=== PATIENT | male | born 1945 | race Caucasian/White ===

== ENCOUNTER 2023-01-11 11:35 | Inpatient (IN) | payer MEDICARE ==
[2023-01-11] MEDS ORDERED: PANTOPRAZOLE 40 MG/10 ML VIAL IVP STA (11:53)
--- NOTE | 2023-01-11 11:57 | ED ---
General Adult HPI - General Chief complaint: GI Bleed Stated complaint: GI Bleed Time Seen by Provider: 01/11/23 11:44 Source: patient, family, EMS, RN notes reviewed Mode of arrival: EMS Limitations: no limitations - History of Present Illness Initial comments: Patient is a pleasant 77-year-old male presenting to the emergency department with concerns for rectal bleeding. Onset of symptoms was this morning. Patient went to the bathroom and felt fatigued and lightheaded. Patient did notice some blood with the bowel movement. Patient has been having some lower abdominal cramping. Patient then had an episode of near-syncope and did have a bowel movement in his pants with associated blood. Patient states symptoms at this time are mild. Patient denies taking blood thinners. No history of similar symptoms previously. No history of atrial fibrillation - Related Data Allergies Allergy/AdvReac Type Severity Reaction Status Date / Time No Known Allergies Allergy Verified 01/11/23 11:48 Review of Systems ROS Statement: Those systems with pertinent positive or pertinent negative responses have been documented in the HPI. ROS Other: All systems not noted in ROS Statement are negative. Constitutional: Denies: fever Eyes: Denies: eye pain ENT: Denies: ear pain Respiratory: Denies: cough Cardiovascular: Denies: chest pain Endocrine: Reports: fatigue Gastrointestinal: Reports: as per HPI, hematochezia Genitourinary: Denies: dysuria Musculoskeletal: Denies: back pain Skin: Denies: rash Neurological: Denies: weakness Past Medical History Past Medical History: CVA/TIA, Dementia Past Surgical History: Hernia Repair, Orthopedic Surgery, Prostate Surgery Additional Past Surgical History / Comment(s): vascectomy, shoulder surgery, Smoking Status: Former smoker Past Alcohol Use History: None Reported, Rare Past Drug Use History: None Reported General Exam Limitations: no limitations General appearance: alert, in no apparent distress Head exam: Present: normocephalic Eye exam: Present: normal appearance Neck exam: Present: normal inspection Respiratory exam: Present: normal lung sounds bilaterally Cardiovascular Exam: Present: irregular rhythm GI/Abdominal exam: Present: soft, normal bowel sounds. Absent: distended, tenderness, guarding, rebound, rigid Rectal exam: Present: bloody stool Extremities exam: Present: normal inspection Neurological exam: Present: alert Psychiatric exam: Present: normal affect, normal mood Skin exam: Present: normal color Course Vital Signs 01/11/23 01/11/23 01/11/23 11:43 11:45 12:00 Temperature 97.6 F Pulse Rate 86 85 Respiratory 18 7 L Rate Blood Pressure 117/73 117/73 117/73 O2 Sat by Pulse 97 97 97 Oximetry 01/11/23 01/11/23 01/11/23 12:15 12:30 12:45 Temperature Pulse Rate 93 80 76 Respiratory 12 18 18 Rate Blood Pressure 92/58 107/77 114/69 O2 Sat by Pulse 98 98 97 Oximetry 01/11/23 01/11/23 01/11/23 12:59 13:00 13:45 Temperature Pulse Rate 82 91 89 Respiratory 18 16 16 Rate Blood Pressure 107/75 107/75 119/83 O2 Sat by Pulse 98 99 98 Oximetry 01/11/23 13:57 Temperature Pulse Rate 64 Respiratory 18 Rate Blood Pressure 99/66 O2 Sat by Pulse 97 Oximetry - Reevaluation(s) Reevaluation #1: 01/11/23 12:02 Repeat EKG does show atrial fibrillation with rate of 84. Left axis. Q waves V1. PVC is present. No acute ST change. EKG Findings - EKG Results: EKG: interpreted by ERMD (Left axis. Poor R-wave progression. PVCs present.), normal ST/T EKG shows: atrial fibrillation Medical Decision Making - Medical Decision Making Was pt. sent in by a medical professional or institution (Dr. PA, MANAGED CARE LIAISON, urgent care, hospital, or longterm...) When possible be specific @ -No Did you speak to anyone other than the patient for history (EMS, parent, family, police, friend...)? What history was obtained from this source @ - is present and helps right history including near syncopal episode Did you review nursing and triage notes (agree or disagree)? Why? @ -I reviewed and agree with nursing and triage notes Were old charts reviewed (outside hosp., previous admission, EMS record, old EKG, old radiological studies, urgent care reports/EKG's, longterm records)? Report findings @ -No old charts were reviewed Differential Diagnosis (chest pain, altered mental status, abdominal pain women, abdominal pain men, vaginal bleeding, weakness, fever, dyspnea, syncope, headache, dizziness, GI bleed, back pain, seizure, CVA, palpatations, mental health, musculoskeletal)? @ -Differential GI Bleed: Esophageal varices, aortoenteric fistula, Yolanda-Shukla, gastritis, peptic ulcer disease, diverticulosis, inflammatory bowel disease, hemorrhoids, fissure, colitis, malignancy, Meckels diverticulum, this is not meant to be an all- inclusive list. EKG interpreted by me (3pts min.). @ -As above X-rays interpreted by me (1pt min.). @ -None done CT interpreted by me (1pt min.). @ -Report reviewed U/S interpreted by me (1pt. min.). @ -None done What testing was considered but not performed or refused? (CT, X-rays, U/S, labs)? Why? @ -None What meds were considered but not given or refused? Why? @ -None Did you discuss the management of the patient with other professionals (professionals i.e. DrSophia, PA, MANAGED CARE LIAISON, lab, RT, psych nurse, social sciences research scientist, first aid director, teacher, mail officer, machine adjuster leader case trim)? Give summary @ -Case was discussed with Dr. Greer who will consult and recommends medical admission. Case also discussed with Dr. Montiel, who will admit covering hospital call Was smoking cessation discussed for >3mins.? @ -No Was critical care preformed (if so, how long)? @ -No Were there social determinants of health that impacted care today? How? (Homelessness, low income, unemployed, alcoholism, drug addiction, transportation, low edu. Level, literacy, decrease access to med. care, intermediate, rehab)? @ -No Was there de-escalation of care discussed even if they declined (Discuss DNR or withdrawal of care, Hospice)? DNR status @ -No What co-morbidities impacted this encounter? (DM, HTN, Smoking, COPD, CAD, Cancer, CVA, ARF, Chemo, Hep., AIDS, mental health diagnosis, sleep apnea, morbid obesity)? @ -None Was patient admitted / discharged? Hospital course, mention meds given and route, prescriptions, significant lab abnormalities, going to OR and other pertinent info. @ -Patient reevaluated. Blood pressure stable. Patient and family updated. Patient will be admitted with consult with surgery. Patient will also have consult placed for cardiology for probable new-onset atrial fibrillation. Blood thinners will be held at this time secondary to concern for GI bleed. Patient does not need Cardizem drip secondary to rate being controlled. Undiagnosed new problem with uncertain prognosis? @ -No Drug Therapy requiring intensive monitoring for toxicity (Heparin, Nitro, Insulin, Cardizem)? @ -No Were any procedures done? @ -No Diagnosis/symptom? @ -Lower GI hemorrhage, A. fib Acute, or Chronic, or Acute on Chronic? @ -Acute Uncomplicated (without systemic symptoms) or Complicated (systemic symptoms)? @ -default Side effects of treatment? @ -No Exacerbation, Progression, or Severe Exacerbation? @ -No Poses a threat to life or bodily function? How? (Chest pain, [place], AL, pneumonia, PE, COPD, DKA, ARF, appy, cholecystitis, CVA, Diverticulitis, Homicidal, Suicidal, threat to staff... and all critical care pts) @ -No - Lab Data Result diagrams: 01/11/23 11:59 01/11/23 11:59 Lab Results 01/11/23 01/11/23 01/11/23 Range/Units 11:59 11:59 11:59 WBC 11.8 H (3.8-10.6) k/uL RBC 3.81 L (4.30-5.90) m/uL Hgb 10.5 L (13.0-17.5) gm/dL Hct 33.4 L (39.0-53.0) % MCV 87.5 (80.0-100.0) fL MCH 27.4 (25.0-35.0) pg MCHC 31.3 (31.0-37.0) g/dL RDW 14.8 (11.5-15.5) % Plt Count 278 (150-450) k/uL MPV 7.9 Neutrophils % 83 % Lymphocytes % 7 % Monocytes % 7 % Eosinophils % 1 % Basophils % 0 % Neutrophils # 9.8 H (1.3-7.7) k/uL Lymphocytes # 0.8 L (1.0-4.8) k/uL Monocytes # 0.8 (0-1.0) k/uL Eosinophils # 0.1 (0-0.7) k/uL Basophils # 0.0 (0-0.2) k/uL Hypochromasia Marked PT 11.2 (9.0-12.0) sec INR 1.1 (<1.2) APTT 20.7 L (22.0-30.0) sec Sodium (137-145) mmol/L Potassium (3.5-5.1) mmol/L Chloride (98-107) mmol/L Carbon Dioxide (22-30) mmol/L Anion Gap mmol/L BUN (9-20) mg/dL Creatinine (0.66-1.25) mg/dL Est GFR (CKD-EPI)AfAm (>60 ml/min/1.73 sqM) Est GFR (CKD-EPI)NonAf (>60 ml/min/1.73 sqM) Glucose (74-99) mg/dL Calcium (8.4-10.2) mg/dL Magnesium (1.6-2.3) mg/dL Total Bilirubin (0.2-1.3) mg/dL AST (17-59) U/L ALT (4-49) U/L Alkaline Phosphatase (38-126) U/L Troponin I (0.000-0.034) ng/mL Total Protein (6.3-8.2) g/dL Albumin (3.5-5.0) g/dL Stool Occult Blood Positive (Negative) Blood Type Blood Type Confirm Blood Type Recheck Bld Type Recheck Status Antibody Screen Spec Expiration Date 01/11/23 01/11/23 01/11/23 Range/Units 11:59 11:59 11:59 WBC (3.8-10.6) k/uL RBC (4.30-5.90) m/uL Hgb (13.0-17.5) gm/dL Hct (39.0-53.0) % MCV (80.0-100.0) fL MCH (25.0-35.0) pg MCHC (31.0-37.0) g/dL RDW (11.5-15.5) % Plt Count (150-450) k/uL MPV Neutrophils % % Lymphocytes % % Monocytes % % Eosinophils % % Basophils % % Neutrophils # (1.3-7.7) k/uL Lymphocytes # (1.0-4.8) k/uL Monocytes # (0-1.0) k/uL Eosinophils # (0-0.7) k/uL Basophils # (0-0.2) k/uL Hypochromasia PT (9.0-12.0) sec INR (<1.2) APTT (22.0-30.0) sec Sodium 138 (137-145) mmol/L Potassium 4.5 (3.5-5.1) mmol/L Chloride 107 (98-107) mmol/L Carbon Dioxide 25 (22-30) mmol/L Anion Gap 6 mmol/L BUN 22 H (9-20) mg/dL Creatinine 0.79 (0.66-1.25) mg/dL Est GFR (CKD-EPI)AfAm >90 (>60 ml/min/1.73 sqM) Est GFR (CKD-EPI)NonAf 88 (>60 ml/min/1.73 sqM) Glucose 123 H (74-99) mg/dL Calcium 8.0 L (8.4-10.2) mg/dL Magnesium 1.5 L (1.6-2.3) mg/dL Total Bilirubin 0.4 (0.2-1.3) mg/dL AST 19 (17-59) U/L ALT 22 (4-49) U/L Alkaline Phosphatase 52 (38-126) U/L Troponin I <0.012 (0.000-0.034) ng/mL Total Protein 5.3 L (6.3-8.2) g/dL Albumin 2.9 L (3.5-5.0) g/dL Stool Occult Blood (Negative) Blood Type A Positive Blood Type Confirm Blood Type Recheck No Previous Record Bld Type Recheck Status CABO Indicated Antibody Screen NEGATIVE Spec Expiration Date 01/14/2023 - 235801/11/23 Range/Units 12:05 WBC (3.8-10.6) k/uL RBC (4.30-5.90) m/uL Hgb (13.0-17.5) gm/dL Hct (39.0-53.0) % MCV (80.0-100.0) fL MCH (25.0-35.0) pg MCHC (31.0-37.0) g/dL RDW (11.5-15.5) % Plt Count (150-450) k/uL MPV Neutrophils % % Lymphocytes % % Monocytes % % Eosinophils % % Basophils % % Neutrophils # (1.3-7.7) k/uL Lymphocytes # (1.0-4.8) k/uL Monocytes # (0-1.0) k/uL Eosinophils # (0-0.7) k/uL Basophils # (0-0.2) k/uL Hypochromasia PT (9.0-12.0) sec INR (<1.2) APTT (22.0-30.0) sec Sodium (137-145) mmol/L Potassium (3.5-5.1) mmol/L Chloride (98-107) mmol/L Carbon Dioxide (22-30) mmol/L Anion Gap mmol/L BUN (9-20) mg/dL Creatinine (0.66-1.25) mg/dL Est GFR (CKD-EPI)AfAm (>60 ml/min/1.73 sqM) Est GFR (CKD-EPI)NonAf (>60 ml/min/1.73 sqM) Glucose (74-99) mg/dL Calcium (8.4-10.2) mg/dL Magnesium (1.6-2.3) mg/dL Total Bilirubin (0.2-1.3) mg/dL AST (17-59) U/L ALT (4-49) U/L Alkaline Phosphatase (38-126) U/L Troponin I (0.000-0.034) ng/mL Total Protein (6.3-8.2) g/dL Albumin (3.5-5.0) g/dL Stool Occult Blood (Negative) Blood Type Blood Type Confirm A Positive Blood Type Recheck Bld Type Recheck Status Antibody Screen Spec Expiration Date Disposition Clinical Impression: Lower gastrointestinal hemorrhage Disposition: ADMITTED IP TO THIS HOSP Is patient prescribed a controlled substance at d/c from ED?: No Referrals: None,Stated [Primary Care Provider] - 1-2 days Time of Disposition: 14:55
[2023-01-11] MEDS: SODIUM CHLORIDE 0.9% 1,000 ML IV STA ×2 (12:11→12:58)
[2023-01-11 12:16] LABS: Basophils % (A) 0 %; Eosinophils # (A) 0.1 k/uL (0-0.7); Eosinophils % (A) 1 %; HCT 33.4 % (39.0-53.0); HGB 10.5 gm/dL (13.0-17.5); Hypochromasia Marked; Lymphocytes # (A) 0.8 k/uL (1.0-4.8); Lymphocytes % (A) 7 %; MCH 27.4 pg (25.0-35.0); MCHC 31.3 g/dL (31.0-37.0); MCV 87.5 fL (80.0-100.0); Mean Platelet Volume 7.9; Monocytes # (A) 0.8 k/uL (0-1.0); Monocytes % (A) 7 %; Neutrophils # (A) 9.8 k/uL (1.3-7.7); Neutrophils % (A) 83 %; Platelet Count 278 k/uL (150-450); RBC 3.81 m/uL (4.30-5.90); RDW 14.8 % (11.5-15.5); WBC 11.8 k/uL (3.8-10.6)
[2023-01-11 12:29] LABS: ALT 22 U/L (4-49); AST 19 U/L (17-59); African American GFR (CKD) >90 (>60 ml/min/1.73 sqM); Albumin 2.9 g/dL (3.5-5.0); Alkaline Phosphatase 52 U/L (38-126); Anion Gap 6 mmol/L; Blood Urea Nitrogen 22 mg/dL (9-20); Carbon Dioxide 25 mmol/L (22-30); Chloride 107 mmol/L (98-107); Glucose 123 mg/dL (74-99); Magnesium 1.5 mg/dL (1.6-2.3); Non-African American GFR(CKD) 88 (>60 ml/min/1.73 sqM); Potassium 4.5 mmol/L (3.5-5.1); Sodium 138 mmol/L (137-145); Total Bilirubin 0.4 mg/dL (0.2-1.3); Total Protein 5.3 g/dL (6.3-8.2)
[2023-01-11 12:31] LABS: INR 1.1 (<1.2); Prothrombin Time 11.2 sec (9.0-12.0)
[2023-01-11 12:33] LABS: Partial Thromboplastin Time 20.7 sec (22.0-30.0)
[2023-01-11] MEDS ORDERED: SODIUM CHLORIDE 0.9% 1,000 ML IV STA (12:54)
--- NOTE | 2023-01-11 14:32 | CT ---
EXAMINATION TYPE: CT angio abdomen pelvis DATE OF EXAM: 01/11/2023 COMPARISON: None HISTORY: GI bleed CT DLP: 2018.8 mGycm CONTRAST: CTA thoracic and abdominal aorta with 3-D reconstruction is performed without Oral Contrast and witho ut and with IV Contrast, patient injected with 100 ml mL of Isovue 370. Contrast CTA of the abdominal aorta was performed from the lung bases through the base of the pelvis. 3-D reconstruction imaging obtained at a separate workstation. CONTRAST CT ABDOMEN AND PELVIS ABDOMINAL AORTA: No evidence for abdominal aortic aneurysm. No dissection. Iliac vessels are symmet beth and patent. Celiac axis, SMA and DIONY are patent. Common iliac arteries are mildly ectatic. Renal arteries as visualized appear to be patent as well. LIVER/GB- No significant abnormality is seen. PANCREAS- No significant abnormality is seen. SPLEEN- No significant abnormality is seen. ADRENALS- No significant abnormality is seen. KIDNEYS/BLADDER- No significant abnormality is seen. BOWEL-there is evidence of sigmoid diverticulosis without diverticulitis. Mild fecal stasis. Moderate fixed hiatal hernia. No evidence for GI inflammatory process or wall thickening at this time. GENITAL ORGANS: No gross abnormality seen. LYMPH NODES- No greater than 1cm abdominal or pelvic lymph nodes areappreciated. OSSEOUS STRUCTURES- No significant abnormality is seen. OTHER- No significant abnormality is seen. IMPRESSION- No evidence for abdominal aortic aneurysm or dissection. Branch vessels appear to be patent. Sigmoid diverticulosis without diverticulitis.
[2023-01-11] MEDS ORDERED: NALOXONE 0.4 MG/ML 1 ML VIAL IV PRN (14:56)
[2023-01-11] MEDS ORDERED: PANTOPRAZOLE 40 MG/10 ML VIAL IV SCH (15:00)
--- NOTE | 2023-01-11 15:16 | P.GSCN ---
History of Present Illness Consult date: 01/11/23 History of present illness: CHIEF COMPLAINT: Bright red blood per rectum HISTORY OF PRESENT ILLNESS: This is a 77-year-old male who presents to the ER due to a GI bleed. He had bright red blood per rectum 3 episodes. He has had clots as well as abdominal cramping. No history of prior GI bleed. Last colonoscopy was 5 years ago which was negative per patient. Patient does have a known history of diverticulitis 1 episode. He is not on any blood thinners. Denies any NSAID use. Family history does include a mother with stomach cancer and father with colon cancer. Hemoglobin 10.5 on admission. Stool for occult blood positive. Patient does report having a near syncopal episode prior to one of the bloody bowel movements. Therefore did call EMS. Patient had a CTA of the abdomen and pelvis showing no evidence of abdominal aortic aneurysm or dissection. Branch vessels appeared patent. Sigmoid diverticulosis without diverticulitis. Patient Denies any nausea or vomiting. He has been hypotensive. He is receiving IV fluids. PAST MEDICAL HISTORY: TIA and dementia PAST SURGICAL HISTORY: See below MEDICATIONS: See below ALLERGIES: See below SOCIAL HISTORY: No illicit drug use. REVIEW OF SYSTEMS: CONSTITUTIONAL: Denies fever or chills. HEENT: Denies blurred vision, vision changes, or eye pain. Denies hemoptysis CARDIOVASCULAR: Denies chest pain or pressure. RESPIRATORY: No shortness of breath. GASTROINTESTINAL: See HPI for pertinent findings HEMATOLOGIC: Denies bleeding disorders. GENITOURINARY: Denies any blood in urine or increased urinary frequency. SKIN: Denies pruitis. Denies rash. PHYSICAL EXAM: VITAL SIGNS: Reviewed GENERAL: Well-developed in no acute distress. HEENT: No sclera icterus. Extraocular movements grossly intact. Moist buccal mucosa. Head is atraumatic, normocephalic. No nasal drainage. ABDOMEN: Soft. Nondistended. Nontender NEUROLOGIC: Alert and oriented. Cranial nerves II through XII grossly intact. LABORATORY DATA: WBC 11.8 Hgb 10.5 platelets 278 INR 1.1 Sodium 13 potassium 4.5 creatinine 0.79 Magnesium 1.5 Stool for occult blood positive IMAGING: Computed tomography scan findings as stated above ASSESSMENT: 1. Acute lower GI bleed with bright red blood per rectum 2. History of diverticulosis 3. Atrial fibrillation cardiology on consult PLAN: -We'll plan for colonoscopy on , 01/13/[address] kapadia -Start GoLYTELY bowel prep tomorrow -Continue clear liquid diet -Continue to monitor hemoglobin -Continue monitor for any signs or symptoms of bleeding -Continue IV fluids -Follow up on Tagged RBC scan -Continue PPI Thank you for this consultation Physician [employer] Supervisor note has been reviewed by physician. Signing provider agrees with the documented findings, assessment, and plan of care. Past Medical History Past Medical History: CVA/TIA, Dementia Past Surgical History: Hernia Repair, Orthopedic Surgery, Prostate Surgery Additional Past Surgical History / Comment(s): vascectomy, shoulder surgery, Smoking Status: Former smoker Past Alcohol Use History: None Reported, Rare Past Drug Use History: None Reported Medications and Allergies Allergies Allergy/AdvReac Type Severity Reaction Status Date / Time No Known Allergies Allergy Verified 01/11/23 11:48 Surgical - Exam Vital Signs Temp Pulse Resp BP Pulse Ox 97.6 F 86 18 117/73 98 01/11/23 11:43 01/11/23 11:43 01/11/23 11:43 01/11/23 11:43 01/11/23 11:43 Results - Labs 01/11/23 11:59 01/11/23 11:59 Abnormal Lab Results - Last 24 Hours (Table) 01/11/23 01/11/23 01/11/23 Range/Units 11:59 11:59 11:59 WBC 11.8 H (3.8-10.6) k/uL RBC 3.81 L (4.30-5.90) m/uL Hgb 10.5 L (13.0-17.5) gm/dL Hct 33.4 L (39.0-53.0) % Neutrophils # 9.8 H (1.3-7.7) k/uL Lymphocytes # 0.8 L (1.0-4.8) k/uL APTT 20.7 L (22.0-30.0) sec BUN 22 H (9-20) mg/dL Glucose 123 H (74-99) mg/dL Calcium 8.0 L (8.4-10.2) mg/dL Magnesium 1.5 L (1.6-2.3) mg/dL Total Protein 5.3 L (6.3-8.2) g/dL Albumin 2.9 L (3.5-5.0) g/dL Diabetes panel 01/11/23 Range/Units 11:59 Sodium 138 (137-145) mmol/L Potassium 4.5 (3.5-5.1) mmol/L Chloride 107 (98-107) mmol/L Carbon Dioxide 25 (22-30) mmol/L BUN 22 H (9-20) mg/dL Creatinine 0.79 (0.66-1.25) mg/dL Glucose 123 H (74-99) mg/dL Calcium 8.0 L (8.4-10.2) mg/dL AST 19 (17-59) U/L ALT 22 (4-49) U/L Alkaline Phosphatase 52 (38-126) U/L Total Protein 5.3 L (6.3-8.2) g/dL Albumin 2.9 L (3.5-5.0) g/dL Calcium panel 01/11/23 Range/Units 11:59 Calcium 8.0 L (8.4-10.2) mg/dL Albumin 2.9 L (3.5-5.0) g/dL Pituitary panel 01/11/23 Range/Units 11:59 Sodium 138 (137-145) mmol/L Potassium 4.5 (3.5-5.1) mmol/L Chloride 107 (98-107) mmol/L Carbon Dioxide 25 (22-30) mmol/L BUN 22 H (9-20) mg/dL Creatinine 0.79 (0.66-1.25) mg/dL Glucose 123 H (74-99) mg/dL Calcium 8.0 L (8.4-10.2) mg/dL Adrenal panel 01/11/23 Range/Units 11:59 Sodium 138 (137-145) mmol/L Potassium 4.5 (3.5-5.1) mmol/L Chloride 107 (98-107) mmol/L Carbon Dioxide 25 (22-30) mmol/L BUN 22 H (9-20) mg/dL Creatinine 0.79 (0.66-1.25) mg/dL Glucose 123 H (74-99) mg/dL Calcium 8.0 L (8.4-10.2) mg/dL Total Bilirubin 0.4 (0.2-1.3) mg/dL AST 19 (17-59) U/L ALT 22 (4-49) U/L Alkaline Phosphatase 52 (38-126) U/L Total Protein 5.3 L (6.3-8.2) g/dL Albumin 2.9 L (3.5-5.0) g/dL
--- NOTE | 2023-01-11 15:41 | P.HPIM ---
History of Present Illness H&P Date: 01/11/23 History of Presenting Illness: Patient is a very pleasant 77-year-old male with a past medical history of hypertension, hyperlipidemia, asthma, and early onset Alzheimer's dementia. Patient and his are from [place] and vacationing in [place] at this time. He presented to the emergency department today secondary to recurrent episodes of dizziness/lightheadedness. Patient reports awakening this morning feeling fatigued and lightheadedness and reports she called EMS and this is when they he was having bright red blood per rectum. Patient reports since initially noting that she has had multiple episodes of bright red blood per rectum and believes he may have had some with initial bowel movement this morning. Since arrival to the emergency department patient reports an additional 4 episodes of large amounts of bright red blood per rectum with continued dizziness/lightheadedness and mild lower abdominal cramping. Patient denies having any headache, changes in vision or hearing, tinnitus, chest pain or palpitations, shortness of breath, or experiencing any numbness/tingling/weakness in his extremities. He and at bedside denies any previous episodes of rectal bleeding and deny taking any blood thinners or NSAIDs. Patient's at bedside reports last colonoscopy being approximately 5 years ago or so and was reported to be negative for any abnormalities. Upon arrival to the emergency department patient underwent full evaluation. Vital signs reviewed and stable with blood pressure 117/73, heart rate 86, respiratory rate 18, temp 97.6F, and SpO2 of 98% on room air. Labs completed and reviewed. CBC showing mild leukocytosis with WBC count of 11.8 and normocytic anemia with hemoglobin of 10.5 with no previous labs available for comparison. EMP revealing elevated BUN 22, glucose of 123, and hypomagnesemia with magnesium of 1.5. Liver profile unremarkable and troponin negative at less than 0.012. Occult stool positive for blood. EKG completed revealing sinus mechanism with frequent PACs and PVCs with no significant T-wave or ST abnormalities upon personal review and interpretation. CTA abdomen and pelvis was completed in radiology report reviewed stating negative for aortic aneurysm or dissection r evealing patent branch vessels, sigmoid diverticulosis without evidence of acute diverticulitis. GI service not available to facility at this time, and ER physician discussed case with general surgeon who has accepted patient for evaluation of GI bleeding. Case discussed with ED physician and patient being admitted under our services to general medical unit with telemetry. Review of systems: Pertinent positives and negatives as discussed in HPI, a complete review of systems was performed and all other systems are negative. Physical exam: Vital signs reviewed and stable. General: Nontoxic, no distress and appears stated age. Derm: Skin warm and dry, normal coloration for ethnicity. Head: Atraumatic, normocephalic and symmetric. Eyes: EOMs intact, no lid lag, and anicteric sclera Mouth: no lip lesions, mucus membranes moist Cardiovascular: regular rate and irregular rhythm with normal S1S2, no murmur, positive posterior tibial pulses bilaterally, and cap refill < 2 seconds. Lungs: Respirations even, regular, and unlabored on room air. Lungs CTA bilaterally, no rhonchi, no rales, no wheezing, and no accessory muscle usage. Abdominal: soft, nontender to palpation, no guarding, no appreciable organomegaly Ext: ROM intact. No gross muscle atrophy, no edema, no contractures Neuro: Speech clear, face symmetrical and CN II-XII grossly intact with no noted focal neuro deficits Psych: Alert and oriented to person, place, time, and situation. Appropriate and pleasant affect. Assessment and Plan of Care: Acute lower GI bleed Acute blood loss anemia secondary to GI bleed Dizziness/lightheadedness likely secondary to acute lower GI bleed -Vital signs reviewed and stable with blood pressure 117/73, heart rate 86, respiratory rate 18, temp 97.6F, and SpO2 of 98% on room air. -Labs completed and reviewed. CBC showing mild leukocytosis with WBC count of 11.8 and normocytic anemia with hemoglobin of 10.5 with no previous labs available for comparison. EMP revealing elevated BUN 22, glucose of 123, and hypomagnesemia with magnesium of 1.5. Liver profile unremarkable and troponin negative at less than 0.012. Occult stool positive for blood. -CTA abdomen and pelvis was completed in radiology report reviewed stating negative for aortic aneurysm or dissection revealing patent branch vessels, sigmoid diverticulosis without evidence of acute diverticulitis. -Case discussed with ED physician and general surgery PA and patient being admitted under our services to stepdown unit with telemetry. -Consulted general surgery discussed plan of care with general surgery PA stating patient scheduled to undergo colonoscopy 01/13/23 -Monitor H&H every 6 hours x 4 and transfuse as needed for hemoglobin less than 7. -Protonix 40 mg IVP twice daily. -Clear liquid diet. -Continued gentle hydration with 0.9% normal saline at 75 mL's per hour. -SCDs for DVT prophylaxis. -Tagged RBC scan to be completed Abnormal EKG, EKG revealing sinus mechanism with frequent PACs and PVCs Hypomagnesemia Hypertension Hyperlipidemia -EKG completed revealing sinus mechanism with frequent PACs and PVCs with no significant T-wave or ST abnormalities upon personal review and interpretation. -Replace abnormal electrolyte values as magnesium was low at 1.5. -Telemetry monitoring -Cardiology was consulted by ED physician. -Patient to continue daily cardiac medication regimen with lisinopril 20 mg twice daily and simvastatin 20 mg nightly. -Order placed for a repeat BMP and magnesium to be drawn tomorrow morning and will follow-up on results and replace abnormal electrolyte values as indicated. Alzheimer's dementia -Continue Aricept 10 mg nightly, Namenda 10 mg twice daily, and Pristiq 100 mg daily The patient is admitted with an anticipated greater than 2 midnight stay for evaluation of dizziness/lightheadedness CODE STATUS: Full code DVT prophylaxis: SCDs Discussed with: Patient, patient's , RN, ED physician, and general surgery PA Anticipated discharge date: Clinical course to determine Anticipated discharge place: Home Patient was seen independently by Nurse Practitioner. This document was prepared using [employer] dictation software. Please allow for errors in edi specialist while rare they do occur. Govind Lan NP rendered care for this patient independently, reviewed the findings and plan as documented in the note above. I did not physically speak with or examine the patient on this date. Past Medical History Past Medical History: CVA/TIA, Dementia Past Surgical History: Hernia Repair, Orthopedic Surgery, Prostate Surgery Additional Past Surgical History / Comment(s): vascectomy, shoulder surgery, Smoking Status: Former smoker Past Alcohol Use History: None Reported, Rare Past Drug Use History: None Reported Medications and Allergies Home Medications Medication Instructions Recorded Confirmed Type Alive Mens 50+ Multivitamin 1 tab PO DAILY 01/11/23 01/11/23 History Cholecalciferol [Vitamin D3 (25 25 mcg PO DAILY 01/11/23 01/11/23 History Mcg = 1000 Iu)] Desvenlafaxine [Pristiq ER] 100 mg PO DAILY 01/11/23 01/11/23 History Donepezil [Aricept] 10 mg PO HS 01/11/23 01/11/23 History Fluticasone Nasal Pedro [Flonase 1 spray EA NOSTRIL DAILY PRN 01/11/23 01/11/23 History Nasal Pedro] Fluticasone Propion/Salmeterol 1 puff INHALATION RT-BID 01/11/23 01/11/23 History [Advair 500-50 Diskus] Memantine [Namenda] 10 mg PO BID 01/11/23 01/11/23 History Montelukast Sodium 10 mg PO HS 01/11/23 01/11/23 History Simvastatin [Zocor] 20 mg PO HS 01/11/23 01/11/23 History Vit C/E/Zn/Coppr/Lutein/Zeaxan 1 cap PO BID 01/11/23 01/11/23 History [Preservision Areds 2 Softgel] busPIRone HCL 15 mg PO BID 01/11/23 01/11/23 History lisinopriL [Prinivil] 20 mg PO BID 01/11/23 01/11/23 History Allergies Allergy/AdvReac Type Severity Reaction Status Date / Time No Known Allergies Allergy Verified 01/11/23 15:23 Physical Exam Vitals: Vital Signs Temp Pulse Resp BP Pulse Ox 01/11/23 13:57 64 18 99/66 97 01/11/23 13:45 89 16 119/83 98 01/11/23 13:00 91 16 107/75 99 01/11/23 12:59 82 18 107/75 98 01/11/23 12:45 76 18 114/69 97 01/11/23 12:30 80 18 107/77 98 01/11/23 12:15 93 12 92/58 98 01/11/23 12:00 85 7 L 117/73 97 01/11/23 11:45 117/73 97 01/11/23 11:43 97.6 F 86 18 117/73 97 Intake and Output 01/11/23 01/11/23 01/11/23 06:59 14:59 22:59 Other: Weight 88.451 kg Results CBC & Chem 7: 01/14/23 10:17 01/14/23 10:17 Labs: Abnormal Lab Results - Last 24 Hours (Table) 07/01/11/23 01/11/23 Range/Units 11:59 11:59 11:59 WBC 11.8 H (3.8-10.6) k/uL RBC 3.81 L (4.30-5.90) m/uL Hgb 10.5 L (13.0-17.5) gm/dL Hct 33.4 L (39.0-53.0) % Neutrophils # 9.8 H (1.3-7.7) k/uL Lymphocytes # 0.8 L (1.0-4.8) k/uL APTT 20.7 L (22.0-30.0) sec BUN 22 H (9-20) mg/dL Glucose 123 H (74-99) mg/dL Calcium 8.0 L (8.4-10.2) mg/dL Magnesium 1.5 L (1.6-2.3) mg/dL Total Protein 5.3 L (6.3-8.2) g/dL Albumin 2.9 L (3.5-5.0) g/dL
[2023-01-11] MEDS: SODIUM CHLORIDE 0.9% 1,000 ML IV SCH ×2 (16:02→23:53)
[2023-01-11] MEDS: MAGNESIUM SULFATE-D5W PMX 1 GM in DEXTROSE/WATER 1 100ML.BAG IVPB SCH ×2 (16:05→17:21)
[2023-01-11] MEDS ORDERED: FLUTICASONE 50MCG/SPRAY NASAL 16GM EA NOSTRIL PRN (16:08)
[2023-01-11 16:28] LABS: Basophils % (A) 0 %; Eosinophils # (A) 0.1 k/uL (0-0.7); Eosinophils % (A) 1 %; HCT 33.3 % (39.0-53.0); HGB 10.4 gm/dL (13.0-17.5); Hypochromasia Moderate; Lymphocytes # (A) 1.1 k/uL (1.0-4.8); Lymphocytes % (A) 11 %; MCH 27.5 pg (25.0-35.0); MCHC 31.3 g/dL (31.0-37.0); MCV 87.7 fL (80.0-100.0); Mean Platelet Volume 8.1; Monocytes # (A) 0.5 k/uL (0-1.0); Monocytes % (A) 5 %; Neutrophils # (A) 8.4 k/uL (1.3-7.7); Neutrophils % (A) 82 %; Platelet Count 276 k/uL (150-450); RDW 14.9 % (11.5-15.5); WBC 10.2 k/uL (3.8-10.6)
--- NOTE | 2023-01-11 20:01 | NM ---
EXAMINATION TYPE: NM GI bleeding DATE OF EXAM: 01/11/2023 CLINICAL INDICATION: Male, 77 years old with history of gi hemorrhage; COMPARISON: NONE Following administration of 3 ml PYP 23.5 mCi Tc 99m Sodium Pertechnete. Immediate images post inject ion. FINDINGS: Normal tracer activity is seen in the blood pool of the abdominal aorta, common iliac arteries, femor al arteries, liver, and spleen on all of the interval images. Later images show accumulation of trace r in the urinary bladder, which is consistent with excreted tracer. No abnormal tracer uptake is pres ent outside the blood pool that would be consistent with an active GI bleed. IMPRESSION: Negative examination. No evidence of active gastrointestinal bleeding during the initial 1 hr observa tion period.
[2023-01-11] MEDS: MONTELUKAST 10 MG TAB PO SCH (20:16)
[2023-01-11] MEDS: PANTOPRAZOLE 40 MG/10 ML VIAL IV SCH (20:16)
[2023-01-11] MEDS: VIT A,C & E-LUTEIN-MINERALS 1 EACH TAB PO SCH (20:17)
[2023-01-11] MEDS: MEMANTINE 10 MG TAB PO SCH (20:17)
[2023-01-11] MEDS: DONEPEZIL 10 MG TAB PO SCH (20:17)
[2023-01-11] MEDS: busPIRone HCl 5 MG TAB PO SCH (20:17)
[2023-01-11] MEDS: lisinopriL 20 MG TAB PO SCH (20:17)
[2023-01-11] MEDS: ATORVASTATIN 10 MG TAB PO SCH (20:20)
[2023-01-11] MEDS: SYMBICORT 160-4.5 MCG INHALER INHALATION SCH (21:41)
[2023-01-11 22:51] LABS: HCT 29.4 % (39.0-53.0); HGB 9.4 gm/dL (13.0-17.5); Hypochromasia Moderate; MCH 27.6 pg (25.0-35.0); MCV 86.3 fL (80.0-100.0); Mean Platelet Volume 8.6; Platelet Count 240 k/uL (150-450); RBC 3.41 m/uL (4.30-5.90); RDW 14.9 % (11.5-15.5); WBC 6.2 k/uL (3.8-10.6)
[2023-01-12] MEDS: SYMBICORT 160-4.5 MCG INHALER INHALATION SCH ×2 (08:05→22:09)
[2023-01-12 08:21] LABS: Basophils % (A) 1 %; Eosinophils # (A) 0.3 k/uL (0-0.7); Eosinophils % (A) 5 %; HCT 32.2 % (39.0-53.0); Hypochromasia Marked; Lymphocytes # (A) 1.3 k/uL (1.0-4.8); Lymphocytes % (A) 28 %; MCH 27.5 pg (25.0-35.0); MCHC 31.2 g/dL (31.0-37.0); MCV 88.2 fL (80.0-100.0); Mean Platelet Volume 8.1; Monocytes # (A) 0.4 k/uL (0-1.0); Monocytes % (A) 8 %; Neutrophils # (A) 2.5 k/uL (1.3-7.7); Neutrophils % (A) 55 %; Platelet Count 270 k/uL (150-450); RBC 3.65 m/uL (4.30-5.90); RDW 14.9 % (11.5-15.5); WBC 4.6 k/uL (3.8-10.6)
[2023-01-12] MEDS: SODIUM CHLORIDE 0.9% 1,000 ML IV SCH ×3 (08:34→22:52)
[2023-01-12] MEDS: busPIRone HCl 5 MG TAB PO SCH ×2 (08:37→21:33)
[2023-01-12] MEDS: lisinopriL 20 MG TAB PO SCH ×2 (08:37→21:33)
[2023-01-12] MEDS: PANTOPRAZOLE 40 MG/10 ML VIAL IV SCH ×2 (08:37→21:33)
[2023-01-12] MEDS: VIT A,C & E-LUTEIN-MINERALS 1 EACH TAB PO SCH ×2 (08:37→21:32)
[2023-01-12] MEDS: MEMANTINE 10 MG TAB PO SCH ×2 (08:37→21:32)
[2023-01-12] MEDS: DESVENLAFAXINE SUCCINATE 50 MG TAB.ER.24H PO SCH (08:38)
[2023-01-12 08:51] LABS: African American GFR (CKD) >90 (>60 ml/min/1.73 sqM); Anion Gap 4 mmol/L; Blood Urea Nitrogen 12 mg/dL (9-20); Calcium 8.5 mg/dL (8.4-10.2); Carbon Dioxide 29 mmol/L (22-30); Chloride 106 mmol/L (98-107); Glucose 96 mg/dL (74-99); Non-African American GFR(CKD) 90 (>60 ml/min/1.73 sqM); Potassium 4.4 mmol/L (3.5-5.1); Sodium 139 mmol/L (137-145)
[2023-01-12] MEDS ORDERED: PEG 3350 (236 GM/BTL) + LYTES 4,000 ML BOTTLE PO ONE (09:00)
--- NOTE | 2023-01-12 11:21 | P.PN ---
Subjective Progress Note Date: 01/12/23 CHIEF COMPLAINT: GI bleed HISTORY OF PRESENT ILLNESS: Patient has not had any further bloody bowel moveme nts since 8 PM yesterday. He denies any further abdominal cramping. Tagged RBC scan was negative. Afebrile. Hemoglobin stable at 10.0 plain using improved from 1.5-2.0 PHYSICAL EXAM: VITAL SIGNS: Reviewed. GENERAL: Well-developed in no acute distress. ABDOMEN: Soft. Nondistended. Nontender. NEUROLOGIC: Alert and oriented. Cranial nerves II through XII grossly intact. ASSESSMENT: 1. Acute lower GI bleed with bright red blood per rectum 2. History of diverticulosis 3. Atrial fibrillation cardiology on consult PLAN: -Patient scheduled for colonoscopy tomorrow, 01/13/[address] kapadia -Start GoLYTELY bowel prep this morning -Continue clear liquid diet -Nothing by mouth after midnight -Continue to monitor hemoglobin -Continue supportive care -Patient being evaluated by cardiology regarding atrial fibrillation Physician Food Stand Manager note has been reviewed by physician. Signing provider agrees with the documented findings, assessment, and plan of care. Objective - Vital Signs Vital signs: Vital Signs Temp 98.7 F 01/12/23 08:00 Pulse 60 01/12/23 08:00 Resp 18 01/12/23 08:00 BP 137/82 01/12/23 08:00 Pulse Ox 98 01/12/23 08:00 FiO2 Intake & Output 01/11/23 01/12/23 01/12/23 18:59 06:59 18:59 Intake Total 310 Balance 310 Weight 88.451 kg Intake: Oral 310 - Labs CBC & Chem 7: 01/12/23 07:07 01/12/23 07:07 Labs: Abnormal Lab Results - Last 24 Hours (Table) 01/11/23 01/11/23 01/11/23 Range/Units 11:59 11:59 11:59 WBC 11.8 H (3.8-10.6) k/uL RBC 3.81 L (4.30-5.90) m/uL Hgb 10.5 L (13.0-17.5) gm/dL Hct 33.4 L (39.0-53.0) % Neutrophils # 9.8 H (1.3-7.7) k/uL Lymphocytes # 0.8 L (1.0-4.8) k/uL APTT 20.7 L (22.0-30.0) sec BUN 22 H (9-20) mg/dL Glucose 123 H (74-99) mg/dL Calcium 8.0 L (8.4-10.2) mg/dL Magnesium 1.5 L (1.6-2.3) mg/dL Total Protein 5.3 L (6.3-8.2) g/dL Albumin 2.9 L (3.5-5.0) g/dL 01/11/23 01/11/23 01/12/23 Range/Units 16:11 22:37 07:07 WBC (3.8-10.6) k/uL RBC 3.80 L 3.41 L 3.65 L (4.30-5.90) m/uL Hgb 10.4 L 9.4 L 10.0 L (13.0-17.5) gm/dL Hct 33.3 L 29.4 L 32.2 L (39.0-53.0) % Neutrophils # 8.4 H (1.3-7.7) k/uL Lymphocytes # (1.0-4.8) k/uL APTT (22.0-30.0) sec BUN (9-20) mg/dL Glucose (74-99) mg/dL Calcium (8.4-10.2) mg/dL Magnesium (1.6-2.3) mg/dL Total Protein (6.3-8.2) g/dL Albumin (3.5-5.0) g/dL
--- NOTE | 2023-01-12 11:42 | P.CRDCN ---
History of Present Illness History of present illness: HISTORY OF PRESENT ILLNESS: This is a 77-year-old male with a past medical history significant for obstructive sleep apnea, TIA, hypertension, and hyperlipidemia. Patient normally resides in [place] and sees a mica sizer there. He states he is in [place] for the summer. We have been asked to see the patient in consultation for atrial fibrillation. Patient examined at the bedside. Patient presented to the hospital for chief complaint of bright red blood per rectum yesterday. He is currently undergoing a bowel prep and is scheduled for colonoscopy tomorrow with Dr. Greer. The patient is not prescribed any anticoagulation on an outpatient basis. He states he used to take a baby aspirin after his TIA but no longer does. The patient denies any chest pain or pressure. He denies any shortness of breath. Vital signs are stable. The patient believes he had a stress test down in [place] last fall which was negative to his knowledge. The patient states he had a physical performed down in [place] and the EKG read out as atrial fibrillation. He states he was referred to a mica sizer who told the patient he did not have atrial fibrillation but was just having "extra beats". * EKG and telemetry reveals sinus mechanism with PVCs and PACs. No evidence of atrial fibrillation. * Laboratory data: WBC 4.6. Hemoglobin 10.0. Platelet count 270. Sodium 139. Potassium 4.4. BUN 12. Creatinine 0.75. TSH 0.652. * Current home cardiac medications include lisinopril 20 mg twice a day and simvastatin 20 mg at night REVIEW OF SYSTEMS: At the time of my exam: CONSTITUTIONAL: Denies fever or chills. HEENT: Denies blurred vision, vision changes, or eye pain. Denies hemoptysis CARDIOVASCULAR: Denies chest pain. Denies orthopnea. Denies PND. Denies palpitations RESPIRATORY: Denies shortness of breath. GASTROINTESTINAL: Denies abdominal pain. Denies nausea or vomiting. HEMATOLOGIC: Denies bleeding disorders. GENITOURINARY: Denies any blood in urine. SKIN: Denies pruitis. Denies rash. PHYSICAL EXAM: VITAL SIGNS: Reviewed. GENERAL: Well-developed in no acute distress. HEENT: Head is normocephalic. Pupils are equal, round. Sclerae anicteric. Mucous membranes of the mouth are moist. Neck supple. No JVD or thyromegaly LUNGS: Respirations even and unlabored. Lungs essentially clear to auscultation bilaterally. HEART: Regular rate and rhythm. S1 and S2 heard. ABDOMEN: Soft. Nondistended. Nontender. EXTREMITIES: Normal range of motion. No clubbing or cyanosis. Peripheral pulses intact. No lower extremity edema NEUROLOGIC: Awake and alert. Oriented x 3. ASSESSMENT: Acute lower GI bleed with bright red blood per rectum Atrial fibrillation, RULED OUT, EKG and telemetry reveal sinus mechanism with PVCs and PACs Obstructive sleep apnea with CPAP use History of TIA Hypertension Hyperlipidemia PLAN: Resume home cardiac medications Obtain 2-D echo to assess cardiac structure and function Continue telemetry monitoring Patient to receive 1 week event monitor at the time of discharge Patient scheduled for colonoscopy tomorrow with Dr. Greer Patient to follow-up in the office in [address] Delacruz Nurse practitioner note has been reviewed by physician. Signing provider agrees with the documented findings, assessment, and plan of care. Past Medical History Past Medical History: CVA/TIA, Dementia, Sleep Apnea/CPAP/BIPAP History of Any Multi-Drug Resistant Organisms: None Reported Past Surgical History: Hernia Repair, Orthopedic Surgery, Prostate Surgery Additional Past Surgical History / Comment(s): vascectomy, shoulder surgery, toe surgery with disc Past Anesthesia/Blood Transfusion Reactions: No Reported Reaction Smoking Status: Former smoker Past Alcohol Use History: None Reported, Rare Past Drug Use History: None Reported Medications and Allergies Home Medications Medication Instructions Recorded Confirmed Type Alive Mens 50+ Multivitamin 1 tab PO DAILY 01/11/23 01/11/23 History Cholecalciferol [Vitamin D3 (25 25 mcg PO DAILY 01/11/23 01/11/23 History Mcg = 1000 Iu)] Desvenlafaxine [Pristiq ER] 100 mg PO DAILY 01/11/23 01/11/23 History Donepezil [Aricept] 10 mg PO HS 01/11/23 01/11/23 History Fluticasone Nasal Bassett [Flonase 1 spray EA NOSTRIL DAILY PRN 01/11/23 01/11/23 History Nasal Bassett] Fluticasone Propion/Salmeterol 1 puff INHALATION RT-BID 01/11/23 01/11/23 History [Advair 500-50 Diskus] Memantine [Namenda] 10 mg PO BID 01/11/23 01/11/23 History Montelukast Sodium 10 mg PO HS 01/11/23 01/11/23 History Simvastatin [Zocor] 20 mg PO HS 01/11/23 01/11/23 History Vit C/E/Zn/Coppr/Lutein/Zeaxan 1 cap PO BID 01/11/23 01/11/23 History [Preservision Areds 2 Softgel] busPIRone HCL 15 mg PO BID 01/11/23 01/11/23 History lisinopriL [Prinivil] 20 mg PO BID 01/11/23 01/11/23 History Allergies Allergy/AdvReac Type Severity Reaction Status Date / Time No Known Allergies Allergy Verified 01/11/23 15:23 Physical Exam Vitals: Vital Signs Temp Pulse Pulse Resp BP BP Pulse Ox 01/12/23 08:00 98.7 F 60 18 137/82 98 01/12/23 03:43 73 17 138/76 98 01/12/23 00:00 82 18 112/68 98 01/11/23 20:00 99 16 133/75 98 01/11/23 16:39 99.0 F 89 16 135/78 98 01/11/23 16:32 99.0 F 87 16 135/78 98 01/11/23 16:00 90 9 L 125/76 98 01/11/23 15:45 89 16 108/94 97 01/11/23 15:30 89 19 125/73 97 01/11/23 15:15 89 14 118/83 98 01/11/23 15:00 16 118/83 01/11/23 14:45 92 18 120/63 96 01/11/23 14:30 90 19 122/73 95 01/11/23 14:15 92 16 130/92 97 01/11/23 14:00 85 16 99/66 97 01/11/23 13:57 64 18 99/66 97 01/11/23 13:45 89 16 119/83 98 01/11/23 13:00 91 16 107/75 99 01/11/23 12:59 82 18 107/75 98 01/11/23 12:45 76 18 114/69 97 01/11/23 12:30 80 18 107/77 98 01/11/23 12:15 93 12 92/58 98 01/11/23 12:00 85 7 L 117/73 97 01/11/23 11:45 117/73 97 01/11/23 11:43 97.6 F 86 18 117/73 97 Intake and Output 01/11/23 01/12/23 01/12/23 22:59 06:59 14:59 Intake Total 310 Balance 310 Intake: Oral 310 Other: Weight 88.451 kg Results 01/12/23 07:07 01/12/23 07:07 Cardiac Enzymes 01/11/23 01/11/23 Range/Units 11:59 11:59 AST 19 (17-59) U/L Troponin I <0.012 (0.000-0.034) ng/mL Coagulation 01/11/23 Range/Units 11:59 PT 11.2 (9.0-12.0) sec APTT 20.7 L (22.0-30.0) sec CBC 01/11/23 01/11/23 01/11/23 Range/Units 11:59 16:11 22:37 WBC 11.8 H 10.2 6.2 (3.8-10.6) k/uL RBC 3.81 L 3.80 L 3.41 L (4.30-5.90) m/uL Hgb 10.5 L 10.4 L 9.4 L (13.0-17.5) gm/dL Hct 33.4 L 33.3 L 29.4 L (39.0-53.0) % Plt Count 278 276 240 (150-450) k/uL 01/12/23 Range/Units 07:07 WBC 4.6 (3.8-10.6) k/uL RBC 3.65 L (4.30-5.90) m/uL Hgb 10.0 L (13.0-17.5) gm/dL Hct 32.2 L (39.0-53.0) % Plt Count 270 (150-450) k/uL Comprehensive Metabolic Panel 01/11/23 Range/Units 11:59 Sodium 138 (137-145) mmol/L Potassium 4.5 (3.5-5.1) mmol/L Chloride 107 (98-107) mmol/L Carbon Dioxide 25 (22-30) mmol/L BUN 22 H (9-20) mg/dL Creatinine 0.79 (0.66-1.25) mg/dL Glucose 123 H (74-99) mg/dL Calcium 8.0 L (8.4-10.2) mg/dL AST 19 (17-59) U/L ALT 22 (4-49) U/L Alkaline Phosphatase 52 (38-126) U/L Total Protein 5.3 L (6.3-8.2) g/dL Albumin 2.9 L (3.5-5.0) g/dL Current Medications Generic Name Dose Route Start Last Admin Trade Name Freq PRN Reason Stop Dose Admin Atorvastatin Calcium 10 mg 01/11/23 21:00 01/11/23 20:20 Atorvastatin 10 Mg Tab PO 10 mg HS CONCHITA Administration Budesonide/Formoterol Fumarate 2 puff 01/11/23 20:00 01/12/23 08:05 Symbicort 160-4.5 Mcg Inhaler INHALATION 2 puff RT-BID CONCHITA Administration Buspirone HCl 15 mg 01/11/23 21:00 01/12/23 08:37 Buspirone Hcl 5 Mg Tab PO 15 mg BID CONCHITA Administration Desvenlafaxine Succinate 100 mg 01/12/23 09:00 01/12/23 08:38 Desvenlafaxine Succinate 50 Mg Tab.Er.24h PO 100 mg DAILY CONCHITA Administration Donepezil HCl 10 mg 01/11/23 21:00 01/11/23 20:17 Donepezil 10 Mg Tab PO 10 mg HS CONCHITA Administration Fluticasone Propionate 1 spray 01/11/23 16:08 Fluticasone 50mcg/Bassett Nasal 16gm EA NOSTRIL DAILY PRN Allergy Symptoms Sodium Chloride 1,000 mls @ 130 mls/hr 01/11/23 15:00 01/12/23 08:34 Saline 0.9% IV Not Given .[id number] CONCHITA Lisinopril 20 mg 01/11/23 21:00 01/12/23 08:37 Lisinopril 20 Mg Tab PO 20 mg BID CONCHITA Administration Memantine 10 mg 01/11/23 21:00 01/12/23 08:37 Memantine 10 Mg Tab PO 10 mg BID CONCHITA Administration Montelukast Sodium 10 mg 01/11/23 21:00 01/11/23 20:16 Montelukast 10 Mg Tab PO 10 mg HS CONCHITA Administration Multivitamins/Minerals 1 each 01/11/23 21:00 01/12/23 08:37 Vit A,C & X-[id number] 1 Each Tab PO 1 each BID CONCHITA Administration Naloxone HCl 0.2 mg 01/11/23 14:56 Naloxone 0.4 Mg/Ml 1 Ml Vial IV Q2M PRN Opioid Reversal Pantoprazole Sodium 40 mg 01/11/23 21:00 01/12/23 08:37 Pantoprazole 40 Mg/10 Ml Vial IV 40 mg BID CONCHITA Administration Polyethylene Glycol/Electrolytes 4,000 ml 01/12/23 09:00 Peg 3350 (236 Gm/Btl) + Lytes 4,000 Ml Bottle PO 01/12/23 09:01 ONCE ONE Intake and Output 01/11/23 01/12/23 01/12/23 22:59 06:59 14:59 Intake Total 310 Balance 310 Intake: Oral 310 Other: Weight 88.451 kg 01/12/23 07:07 01/11/23 11:59
--- NOTE | 2023-01-12 12:56 | CA ---
Transthoracic Echo Report Name: Damon Kirk Age: 77 Gender: M : 1945 Exam Date: 01/12/2023 10:52 Exam Location: [facility] Ht (in): 70 Wt (lb): 195 Ordering Physician: Rosario Mccain Attending/Referring Phys: [id number], Adán Brush Or Broom Cutter Gildardo Rojas Procedure CPT: Indications: LV function Cardiac Hx: Technical Quality: Fair Contrast 1: Total Dose (mL): Contrast 2: Total Dose (mL): MEASUREMENTS (Male / Female) Normal Values 2D ECHO LV Diastolic Diameter PLAX 4.7 cm 4.2 - 5.9 / 3.9 - 5.3 cm LV Systolic Diameter PLAX 2.7 cm IVS Diastolic Thickness 1.2 cm 0.6 - 1.0 / 0.6 - 0.9 cm LVPW Diastolic Thickness 1.3 cm 0.6 - 1.0 / 0.6 - 0.9 cm LV Relative Wall Thickness 0.5 RV Internal Dim ED PLAX 3.6 cm LVOT Diameter 2.4 cm Aortic Root Diameter 3.3 cm LA Systolic Diameter LX 2.1 cm 3.0 - 4.0 / 2.7 - 3.8 cm LV Diastolic Volume MOD BP 67.2 cm??? 67 - 155 / 56 - 104 cm??? LV Systolic Volume MOD BP 35.8 cm??? 22 - 58 / 19 - 49 cm??? LV Ejection Fraction MOD BP 46.8 % >= 55 % LV Cardiac Index MOD BP 1133.9 cm???/min???m??? LV Diastolic Volume MOD 4C 65.6 cm??? LV Systolic Volume MOD 4C 35.6 cm??? LV Ejection Fraction MOD 4C 45.8 % LV Cardiac Index MOD 4C 1083.8 cm???/min???m??? LV Diastolic Length 4C 7.0 cm LV Systolic Length 4C 6.9 cm LV Diastolic Volume MOD 2C 68.3 cm??? LV Systolic Volume MOD 2C 35.0 cm??? LV Ejection Fraction MOD 2C 48.8 % LV Cardiac Index MOD 2C 1202.2 cm???/min???m??? LV Diastolic Length 2C 7.1 cm LV Systolic Length 2C 6.7 cm LA Volume 59.9 cm??? 18 - 58 / 22 - 52 cm??? Ascending Aorta Diameter 3.7 cm DOPPLER AV Peak Velocity 126.7 cm/s AV Peak Gradient 6.4 mmHg AI Peak Velocity 439.5 cm/s AI Peak Gradient 77.3 mmHg AI Pressure Half Time 612.3 ms LVOT Peak Velocity 86.4 cm/s LVOT Peak Gradient 3.0 mmHg AV Area Cont Eq pk 3.1 cm??? MV Peak Velocity 105.8 cm/s MV Peak Gradient 4.5 mmHg MV Mean Velocity 52.1 cm/s MV Mean Gradient 1.3 mmHg MV Velocity Time Integral 33.1 cm MR Peak Velocity 407.4 cm/s MR Peak Gradient 66.4 mmHg Mitral E Point Velocity 85.1 cm/s Mitral A Point Velocity 95.9 cm/s Mitral E to A Ratio 0.9 MV Deceleration Time 226.7 ms MV E' Velocity 8.4 cm/s Mitral E to MV E' Ratio 10.2 TR Peak Velocity 256.8 cm/s TR Peak Gradient 26.4 mmHg Right Ventricular Systolic Press 31.4 mmHg PV Peak Velocity 97.3 cm/s PV Peak Gradient 3.8 mmHg FINDINGS Left Ventricle Left ventricular cavity size normal. Mildly increased left ventricular wall thickness. Left ventricular ejection fraction is estimated at 45-50 %. Global hypokinesis Right Ventricle Normal right ventricular size. RSVP= 32mmhg. Right Atrium Normal right atrial size. Left Atrium Normal left atrial size. LA volume index= 29 ml/m2 Mitral Valve Structurally normal mitral valve. Mild MR. Aortic Valve Trileaflet aortic valve. Mild AI. Tricuspid Valve Structurally normal tricuspid valve. Mild TR. Pulmonic Valve Pulmonic valve not well visualized. Trace PI. Pericardium Normal pericardium. Aorta Normal size aortic root and proximal ascending aorta. CONCLUSIONS 1. Mildly impaired left ventricular systolic function with global hypokinesis 2. Mild mitral, aortic and tricuspid regurgitation Previewed by: Dr. Joellen Chong MD (Electronically Signed) Final Date: 12 January 2023 12:55
--- NOTE | 2023-01-12 13:09 | P.PN ---
Subjective Progress Note Date: 01/12/23 Hospital course Patient is a very pleasant 77-year-old male with a past medical history of hypertension, hyperlipidemia, obstructive sleep apnea CPAP dependent nightly, asthma, and early onset Alzheimer's dementia. Patient and his are from [place] and vacationing in [place] at this time. He presented to the emergency department today secondary to recurrent episodes of dizziness/lightheadedness. Patient reports awakening this morning feeling fatigued and lightheadedness and reports she called EMS and this is when they he was having bright red blood per rectum. Patient reports since initially noting that she has had multiple episodes of bright red blood per rectum and believes he may have had some with initial bowel movement this morning. Since arrival to the emergency department patient reports an additional 4 episodes of large amounts of bright red blood per rectum with continued dizziness/lightheadedness and mild lower abdominal cramping. Patient denies having any headache, changes in vision or hearing, tinnitus, chest pain or palpitations, shortness of breath, or experiencing any numbness/tingling/weakness in his extremities. He and at bedside denies any previous episodes of rectal bleeding and deny taking any blood thinners or NSAIDs. Patient's at bedside reports last colonoscopy being approximately 5 years ago or so and was reported to be negative for any abnormalities. Upon arrival to the emergency department patient underwent full evaluation. Vital signs reviewed and stable with blood pressure 117/73, heart rate 86, respiratory rate 18, temp 97.6F, and SpO2 of 98% on room air. Labs completed and reviewed. CBC showing mild leukocytosis with WBC count of 11.8 and normocytic anemia with hemoglobin of 10.5 with no previous labs available for comparison. EMP revealing elevated BUN 22, glucose of 123, and hypomagnesemia with magnesium of 1.5. Liver profile unremarkable and troponin negative at less than 0.012. Occult stool positive for blood. EKG completed revealing sinus mechanism with frequent PACs and PVCs with no significant T-wave or ST abnormalities upon personal review and interpretation. CTA abdomen and pelvis was completed in radiology report reviewed stating negative for aortic aneurysm or dissection revealing patent branch vessels, sigmoid diverticulosis without evidence of acute diverticulitis. GI service not available to facility at this time, and ER physician discussed case with general surgeon who has accepted patient for evaluation of GI bleeding. Case discussed with ED physician and patient was admitted under our services to general medical unit with telemetry. Physical exam: Patient seen and fully evaluated at bedside this morning. He reports no further episodes of lower GI bleeding since last night around 8 PM. Morning hemoglobin stable at 10.0. Patient denies having any abdominal pain or cramping. He is tolerating clear liquid diet and to begin bowel prep later today for scheduled colonoscopy tomorrow. Vital signs reviewed and stable. General: Nontoxic, no distress and appears stated age. Derm: Skin warm and dry, normal coloration for ethnicity. Head: Atraumatic, normocephalic and symmetric. Eyes: EOMs intact, no lid lag, and anicteric sclera Mouth: no lip lesions, mucus membranes moist Cardiovascular: regular rate and irregular rhythm with normal S1S2, no murmur, positive posterior tibial pulses bilaterally, and cap refill < 2 seconds. Lungs: Respirations even, regular, and unlabored on room air. Lungs CTA bilaterally, no rhonchi, no rales, no wheezing, and no accessory muscle usage. Abdominal: soft, nontender to palpation, no guarding, no appreciable organomegaly Ext: ROM intact. No gross muscle atrophy, no edema, no contractures Neuro: Speech clear, face symmetrical and CN II-XII grossly intact with no noted focal neuro deficits Psych: Alert and oriented to person, place, time, and situation. Appropriate and pleasant affect. Assessment and Plan of Care: Acute lower GI bleed Acute blood loss anemia secondary to GI bleed Dizziness/lightheadedness likely secondary to acute lower GI bleed -Hemoglobin has been trended every 6 hours and remained stable at 10.5, 10.4, 9.4, and 10.0. Patient reports last episode of rectal bleeding being yesterday around 8 PM. -Gen. surgery following, discussed plan of care with general surgery PA stating patient scheduled to undergo colonoscopy tomorrow. Patient to begin bowel prep later today. -Continue to Monitor H&H and transfuse as needed for hemoglobin less than 7. -Continue Protonix 40 mg IVP twice daily. -Clear liquid diet and NPO at midnight for scheduled colonoscopy. -Continued gentle hydration with 0.9% normal saline at 75 mL's per hour. -SCDs for DVT prophylaxis. -Tagged RBC scan was completed in radiology report reviewed stating negative examination with no evidence of acute gastrointestinal bleeding during the initial 1 hour observation period. Abnormal EKG, EKG revealing sinus mechanism with frequent PACs and PVCs Hypomagnesemia, resolved Hypertension Hyperlipidemia -EKG revealing sinus mechanism with frequent PACs and PVCs with no significant T-wave or ST abnormalities upon personal review and interpretation. -Magnesium was initially low at 1.5, patient received magnesium sulfate 2 g IVPB with repeat magnesium resulting normal at 2.0. PACs and PVCs seem to have lessened in frequency and may possibly have been secondary to abnormal electrolyte values. -Continue Telemetry monitoring -Cardiology evaluated patient and recommending echocardiogram to be completed and planning for event monitor upon discharge.. -Patient to continue daily cardiac medication regimen with lisinopril 20 mg tw ice daily and simvastatin 20 mg nightly. -Order placed for a repeat BMP and magnesium to be drawn tomorrow morning and will follow-up on results and replace abnormal electrolyte values as indicated. Alzheimer's dementia -Continue Aricept 10 mg nightly, Namenda 10 mg twice daily, and Pristiq 100 mg daily Obstructive sleep apnea -Continue use of home CPAP. Mild persistent Asthma, stable on medications -Continue daily medication regimen with Symbicort 2 puffs twice daily and Singulair 10 mg nightly. Data review: -Vital signs reviewed and stable with blood pressure 137/82, heart rate 60, respiratory rate 18, temp 98.7F, and SpO2 of 98% on room air. -Morning labs reviewed. CBC showing stable hemoglobin at 10.0. BMP remains unremarkable. Magnesium 2.0. TSH 0.652. Imaging review: -Tagged RBC scan was completed in radiology report reviewed stating negative examination with no evidence of acute gastrointestinal bleeding during the initial 1 hour observation period. CODE STATUS: Full code DVT prophylaxis: SCDs Discussed with: Patient, RN, cardiology [facility] and general surgery PA Anticipated discharge date: Clinical course to determine Anticipated discharge place: Home Patient was seen independently by Nurse Practitioner. This document was prepared using [employer] dictation software. Please allow for errors in physician aide while rare they do occur. Govind Lan NP rendered care for this patient independently, reviewed the findings and plan as documented in the note above. I did not physically speak with or examine the patient on this date. Objective - Vital Signs Vital signs: Vital Signs Temp 98.7 F 01/12/23 08:00 Pulse 60 01/12/23 08:00 Resp 18 01/12/23 08:00 BP 137/82 01/12/23 08:00 Pulse Ox 98 01/12/23 08:00 FiO2 Intake & Output 01/11/23 01/12/23 01/12/23 18:59 06:59 18:59 Intake Total 310 Balance 310 Weight 88.451 kg Intake: Oral 310 - Labs CBC & Chem 7: 01/14/23 10:17 01/14/23 10:17 Labs: Abnormal Lab Results - Last 24 Hours (Table) 01/11/23 01/11/23 01/11/23 Range/Units 11:59 11:59 11:59 WBC 11.8 H (3.8-10.6) k/uL RBC 3.81 L (4.30-5.90) m/uL Hgb 10.5 L (13.0-17.5) gm/dL Hct 33.4 L (39.0-53.0) % Neutrophils # 9.8 H (1.3-7.7) k/uL Lymphocytes # 0.8 L (1.0-4.8) k/uL APTT 20.7 L (22.0-30.0) sec BUN 22 H (9-20) mg/dL Glucose 123 H (74-99) mg/dL Calcium 8.0 L (8.4-10.2) mg/dL Magnesium 1.5 L (1.6-2.3) mg/dL Total Protein 5.3 L (6.3-8.2) g/dL Albumin 2.9 L (3.5-5.0) g/dL 01/11/23 01/11/23 01/12/23 Range/Units 16:11 22:37 07:07 WBC (3.8-10.6) k/uL RBC 3.80 L 3.41 L 3.65 L (4.30-5.90) m/uL Hgb 10.4 L 9.4 L 10.0 L (13.0-17.5) gm/dL Hct 33.3 L 29.4 L 32.2 L (39.0-53.0) % Neutrophils # 8.4 H (1.3-7.7) k/uL Lymphocytes # (1.0-4.8) k/uL APTT (22.0-30.0) sec BUN (9-20) mg/dL Glucose (74-99) mg/dL Calcium (8.4-10.2) mg/dL Magnesium (1.6-2.3) mg/dL Total Protein (6.3-8.2) g/dL Albumin (3.5-5.0) g/dL
[2023-01-12] MEDS: DONEPEZIL 10 MG TAB PO SCH (21:33)
[2023-01-12] MEDS: ATORVASTATIN 10 MG TAB PO SCH (21:33)
[2023-01-12] MEDS: MONTELUKAST 10 MG TAB PO SCH (21:33)
[2023-01-12 21:34] LABS: Basophils % (A) 0 %; Eosinophils # (A) 0.3 k/uL (0-0.7); Eosinophils % (A) 5 %; HCT 31.6 % (39.0-53.0); HGB 9.7 gm/dL (13.0-17.5); Hypochromasia Marked; Lymphocytes # (A) 1.5 k/uL (1.0-4.8); Lymphocytes % (A) 29 %; MCH 26.8 pg (25.0-35.0); MCHC 30.6 g/dL (31.0-37.0); MCV 87.8 fL (80.0-100.0); Mean Platelet Volume 7.9; Monocytes # (A) 0.4 k/uL (0-1.0); Monocytes % (A) 9 %; Neutrophils # (A) 2.7 k/uL (1.3-7.7); Neutrophils % (A) 53 %; Platelet Count 278 k/uL (150-450); WBC 5.1 k/uL (3.8-10.6)
[2023-01-13] MEDS: SODIUM CHLORIDE 0.9% 1,000 ML IV SCH ×3 (05:45→21:00)
[2023-01-13] MEDS: SYMBICORT 160-4.5 MCG INHALER INHALATION SCH ×2 (08:11→19:33)
[2023-01-13] MEDS ORDERED: ASPIRIN-ACET-CAFF 250-250-65MG 1 EACH TAB PO PRN (09:11)
[2023-01-13] MEDS: MEMANTINE 10 MG TAB PO SCH ×2 (09:24→21:06)
[2023-01-13] MEDS: busPIRone HCl 5 MG TAB PO SCH ×2 (09:24→21:06)
[2023-01-13] MEDS: PANTOPRAZOLE 40 MG/10 ML VIAL IV SCH ×2 (09:24→21:07)
[2023-01-13] MEDS: DESVENLAFAXINE SUCCINATE 50 MG TAB.ER.24H PO SCH (09:24)
[2023-01-13] MEDS: lisinopriL 20 MG TAB PO SCH ×2 (09:24→21:07)
[2023-01-13] MEDS: VIT A,C & E-LUTEIN-MINERALS 1 EACH TAB PO SCH ×2 (09:24→21:06)
[2023-01-13 10:04] LABS: HCT 31.1 % (39.0-53.0); HGB 9.5 gm/dL (13.0-17.5); Hypochromasia Moderate; MCH 26.8 pg (25.0-35.0); MCHC 30.7 g/dL (31.0-37.0); MCV 87.4 fL (80.0-100.0); Platelet Count 265 k/uL (150-450); RBC 3.55 m/uL (4.30-5.90); WBC 5.3 k/uL (3.8-10.6)
[2023-01-13] MEDS ORDERED: PROPOFOL 10 MG/ML 20 ML VIAL IV ONE (10:51)
[2023-01-13] MEDS ORDERED: SODIUM CHLORIDE 0.9% 500 ML 500 ML IV ONE (10:54)
[2023-01-13 11:10] LABS: African American GFR (CKD) >90 (>60 ml/min/1.73 sqM); Anion Gap 7 mmol/L; Blood Urea Nitrogen 7 mg/dL (9-20); Calcium 8.8 mg/dL (8.4-10.2); Carbon Dioxide 27 mmol/L (22-30); Chloride 105 mmol/L (98-107); Glucose 95 mg/dL (74-99); Magnesium 1.9 mg/dL (1.6-2.3); Non-African American GFR(CKD) >90 (>60 ml/min/1.73 sqM); Potassium 4.1 mmol/L (3.5-5.1); Sodium 139 mmol/L (137-145)
--- NOTE | 2023-01-13 11:16 | P.OP ---
Date of Procedure: 01/13/23 Preoperative Diagnosis: GI bleed Postoperative Diagnosis: Diverticulosis Procedure(s) Performed: Colonoscopy Anesthesia: MAC Surgeon: Lukasz Greer Pathology: none sent Condition: stable Disposition: PACU Description of Procedure: The patient's placed on the endoscopy table in the lateral position. Seemed IV sedation. Digital rectal exam was performed which revealed no ebonized. Flexible colonoscope was then placed patient anus and passed throughout the entire colon. Ileocecal valve was visualized. The cecum, ascending and transverse colon appeared normal. In the descending; there is extensive diverticular changes. Scope was brought back the rectum this appeared normal. There is no evidence of GI bleed on colonoscopy. His presumed patient may been bleeding from diverticular disease.
--- NOTE | 2023-01-13 11:17 | P.PN ---
Subjective Progress Note Date: 01/13/23 CHIEF COMPLAINT: GI bleed HISTORY OF PRESENT ILLNESS: Patient tolerated the GoLYTELY bowel prep. Stools are clear. Denies any further bleeding. Denies abdominal pain. Afebrile. Hemoglobin stable at 9.5 sodium 139 and has 4.1 creatinine 0.4 PHYSICAL EXAM: VITAL SIGNS: Reviewed. GENERAL: Well-developed in no acute distress. ABDOMEN: Soft. Nondistended. Nontender. NEUROLOGIC: Alert and oriented. Cranial nerves II through XII grossly intact. ASSESSMENT: 1. Acute lower GI bleed with bright red blood per rectum 2. History of diverticulosis PLAN: -Patient scheduled for colonoscopy today with Dr. Greer Physician Manager Instrumentation note has been reviewed by physician. Signing provider agrees with the documented findings, assessment, and plan of care. Objective - Vital Signs Vital signs: Vital Signs Temp 97.9 F 01/13/23 09:13 Pulse 82 01/13/23 09:13 Resp 18 01/13/23 09:13 BP 120/81 01/13/23 09:13 Pulse Ox 96 01/13/23 09:13 FiO2 Intake & Output 01/12/23 01/13/23 01/13/23 18:59 06:59 18:59 Intake Total 770 500 200 Balance 770 500 200 Intake: IV 200 Oral 770 500 Other: # Voids 3 # Bowel Movements 3 - Labs CBC & Chem 7: 01/13/23 09:29 01/13/23 09:29 Labs: Abnormal Lab Results - Last 24 Hours (Table) 01/12/23 01/13/23 01/13/23 Range/Units 20:51 09:29 09:29 RBC 3.60 L 3.55 L (4.30-5.90) m/uL Hgb 9.7 L 9.5 L (13.0-17.5) gm/dL Hct 31.6 L 31.1 L (39.0-53.0) % MCHC 30.6 L 30.7 L (31.0-37.0) g/dL BUN 7 L (9-20) mg/dL
--- NOTE | 2023-01-13 13:20 | P.PN ---
Subjective HISTORY OF PRESENT ILLNESS: This is a 77-year-old male with a past medical history significant for obstructive sleep apnea, TIA, hypertension, and hyperlipidemia. Patient normally resides in [place] and sees a clerk guide there. He states he is in [place] for the summer. We have been asked to see the patient in consultation for atrial fibrillation. Patient examined at the bedside. Patient presented to the hospital for chief complaint of bright red blood per rectum yesterday. He is currently undergoing a bowel prep and is scheduled for colonoscopy tomorrow with Dr. Greer. The patient is not prescribed any anticoagulation on an outpatient basis. He states he used to take a baby aspirin after his TIA but no longer does. The patient denies any chest pain or pressure. He denies any shortness of breath. Vital signs are stable. The patient believes he had a stress test down in [place] last fall which was negative to his knowledge. The patient states he had a physical performed down in [place] and the EKG read out as atrial fibrillation. He states he was referred to a clerk guide who told the patient he did not have atrial fibrillation but was just having "extra beats". * EKG and telemetry reveals sinus mechanism with PVCs and PACs. No evidence of atrial fibrillation. * Laboratory data: WBC 4.6. Hemoglobin 10.0. Platelet count 270. Sodium 139. Potassium 4.4. BUN 12. Creatinine 0.75. TSH 0.652. * Current home cardiac medications include lisinopril 20 mg twice a day and simvastatin 20 mg at night 01/13/2023 Patient examined this morning at the bedside. Patient denies chest pain or pressure. He denies shortness of breath. He is scheduled for colonoscopy today with general surgery. Telemetry reveals sinus mechanism. Echocardiogram completed revealing ejection fraction 45-50%, global hypokinesia, mild MR, mild AI, mild TR. PHYSICAL EXAM: VITAL SIGNS: Reviewed. GENERAL: Well-developed in no acute distress. HEENT: Head is normocephalic. Pupils are equal, round. Sclerae anicteric. Mucous membranes of the mouth are moist. Neck supple. No JVD or thyromegaly LUNGS: Respirations even and unlabored. Lungs essentially clear to auscultation bilaterally. HEART: Regular rate and rhythm. S1 and S2 heard. ABDOMEN: Soft. Nondistended. Nontender. EXTREMITIES: Normal range of motion. No clubbing or cyanosis. Peripheral pulses intact. No lower extremity edema NEUROLOGIC: Awake and alert. Oriented x 3. ASSESSMENT: Acute lower GI bleed with bright red blood per rectum Atrial fibrillation, RULED OUT, EKG and telemetry reveal sinus mechanism with PVCs and PACs Obstructive sleep apnea with CPAP use History of TIA Hypertension Hyperlipidemia PLAN: Patient scheduled for colonoscopy today with general surgery Continue current cardiac medications Patient to receive 1 week event monitor at the time of discharge Patient to follow-up in the office in [address] Delacruz Patient is stable from a cardiac standpoint. We will sign off. Please reconsult if needed. Nurse practitioner note has been reviewed by physician. Signing provider agrees with the documented findings, assessment, and plan of care. Objective - Vital Signs Vital signs: Vital Signs Temp 97.9 F 01/13/23 09:13 Pulse 59 L 01/13/23 12:15 Resp 18 01/13/23 12:15 BP 117/67 01/13/23 12:15 Pulse Ox 97 01/13/23 12:15 FiO2 Intake & Output 01/12/23 01/13/23 01/13/23 18:59 06:59 18:59 Intake Total 770 500 380 Balance 770 500 380 Intake: IV 200 Oral 770 500 180 Other: # Voids 3 # Bowel Movements 3 - Labs CBC & Chem 7: 01/13/23 09:29 01/13/23 09:29 Labs: Abnormal Lab Results - Last 24 Hours (Table) 01/12/23 01/13/23 01/13/23 Range/Units 20:51 09:29 09:29 RBC 3.60 L 3.55 L (4.30-5.90) m/uL Hgb 9.7 L 9.5 L (13.0-17.5) gm/dL Hct 31.6 L 31.1 L (39.0-53.0) % MCHC 30.6 L 30.7 L (31.0-37.0) g/dL BUN 7 L (9-20) mg/dL
--- NOTE | 2023-01-13 13:55 | P.PN ---
Subjective Progress Note Date: 01/13/23 Hospital course Patient is a very pleasant 77-year-old male with a past medical history of hypertension, hyperlipidemia, obstructive sleep apnea CPAP dependent nightly, asthma, and early onset Alzheimer's dementia. Patient and his are from [place] and vacationing in [place] at this time. He presented to the emergency department today secondary to recurrent episodes of dizziness/lightheadedness. Patient reports awakening this morning feeling fatigued and lightheadedness and reports she called EMS and this is when they he was having bright red blood per rectum. Patient reports since initially noting that she has had multiple episodes of bright red blood per rectum and believes he may have had some with initial bowel movement this morning. Since arrival to the emergency department patient reports an additional 4 episodes of large amounts of bright red blood per rectum with continued dizziness/lightheadedness and mild lower abdominal cramping. Patient denies having any headache, changes in vision or hearing, tinnitus, chest pain or palpitations, shortness of breath, or experiencing any numbness/tingling/weakness in his extremities. He and at bedside denies any previous episodes of rectal bleeding and deny taking any blood thinners or NSAIDs. Patient's at bedside reports last colonoscopy being approximately 5 years ago or so and was reported to be negative for any abnormalities. Upon arrival to the emergency department patient underwent full evaluation. Vital signs reviewed and stable with blood pressure 117/73, heart rate 86, respiratory rate 18, temp 97.6F, and SpO2 of 98% on room air. Labs completed and reviewed. CBC showing mild leukocytosis with WBC count of 11.8 and normocytic anemia with hemoglobin of 10.5 with no previous labs available for comparison. EMP revealing elevated BUN 22, glucose of 123, and hypomagnesemia with magnesium of 1.5. Liver profile unremarkable and troponin negative at less than 0.012. Occult stool positive for blood. EKG completed revealing sinus mechanism with frequent PACs and PVCs with no significant T-wave or ST abnormalities upon personal review and interpretation. CTA abdomen and pelvis was completed in radiology report reviewed stating negative for aortic aneurysm or dissection revealing patent branch vessels, sigmoid diverticulosis without evidence of acute diverticulitis. GI service not available to facility at this time, and ER physician discussed case with general surgeon who has accepted patient for evaluation of GI bleeding. Case discussed with ED physician and patient was admitted under our services to general medical unit with telemetry. Cardiology and general surgery consulted. Tagged RBC scan was completed in radiology report reviewed stating negative examination with no evidence of acute gastrointestinal bleeding during the initial 1 hour observation period. Patient scheduled to undergo colonoscopy later today. Physical exam: Patient seen and fully evaluated at bedside this morning. He reports multiple episodes of rectal bleeding yesterday after beginning prep. Patient reports approximately 3-5 episodes of bright red blood per rectum yesterday afternoon. at bedside reports bleeding improved by yesterday evening and has since had clear watery stool. Patient scheduled to undergo colonoscopy later today. Vital signs reviewed and stable. General: Nontoxic, no distress and appears stated age. Derm: Skin warm and dry, normal coloration for ethnicity. Head: Atraumatic, normocephalic and symmetric. Eyes: EOMs intact, no lid lag, and anicteric sclera Mouth: no lip lesions, mucus membranes moist Cardiovascular: regular rate and irregular rhythm with normal S1S2, no murmur, positive posterior tibial pulses bilaterally, and cap refill < 2 seconds. Lungs: Respirations even, regular, and unlabored on room air. Lungs CTA bilaterally, no rhonchi, no rales, no wheezing, and no accessory muscle usage. Abdominal: soft, nontender to palpation, no guarding, no appreciable organomegaly Ext: ROM intact. No gross muscle atrophy, no edema, no contractures Neuro: Speech clear, face symmetrical and CN II-XII grossly intact with no noted focal neuro deficits Psych: Alert and oriented to person, place, time, and situation. Appropriate and pleasant affect. Assessment and Plan of Care: Acute lower GI bleed Acute blood loss anemia secondary to GI bleed Dizziness/lightheadedness likely secondary to acute lower GI bleed -Hemoglobin has been trended every 6 hours and remained stable and currently res ulting in 9.5. -Gen. surgery following, discussed plan of care with general surgery PA stating patient scheduled to undergo colonoscopy tomorrow. Patient to begin bowel prep later today. -Continue to Monitor H&H and transfuse as needed for hemoglobin less than 7. -Continue Protonix 40 mg IVP twice daily. -Pt currently NPO for scheduled colonoscopy later today and to be advanced as recommended by general surgery team. -Continued gentle hydration with 0.9% normal saline at 75 mL's per hour, may be discontinued once patient tolerating oral intake. -Continue SCDs for DVT prophylaxis. Abnormal EKG, EKG revealing sinus mechanism with frequent PACs and PVCs Hypomagnesemia, resolved Hypertension Hyperlipidemia -EKG revealing sinus mechanism with frequent PACs and PVCs with no significant T-wave or ST abnormalities upon personal review and interpretation. -Echocardiogram completed in report reviewed showing slightly impaired EF of 45- 50% with reports of global hypokinesis along with mild mitral, aortic, and tricuspid regurgitation -Magnesium was initially low at 1.5, patient received magnesium sulfate 2 g IVPB with repeat magnesium resulting normal at 2.0. PACs and PVCs seem to have lessened in frequency and may possibly have been secondary to abnormal electrolyte values. -Continue Telemetry monitoring -Cardiology evaluated patient and recommending event monitor upon discharge.. -Patient to continue daily cardiac medication regimen with lisinopril 20 mg twice daily and simvastatin 20 mg nightly. -Order placed for a repeat BMP and magnesium to be drawn tomorrow morning and will follow-up on results and replace abnormal electrolyte values as indicated. Alzheimer's dementia -Continue Aricept 10 mg nightly, Namenda 10 mg twice daily, and Pristiq 100 mg daily Obstructive sleep apnea -Continue use of home CPAP. Mild persistent Asthma, stable on medications -Continue daily medication regimen with Symbicort 2 puffs twice daily and Singulair 10 mg nightly. Data review: -Vital signs reviewed and stable with blood pressure 120/81, heart rate 82, respiratory rate 18, temp 97.9F, and SpO2 of 96% on room air. -Morning labs reviewed. CBC showing stable hemoglobin at 9.5 and BMP unremarkable with sodium 139, potassium 4.1, chloride 105, calcium 8.8, and magnesium 1.9.. Imaging review: -Tagged RBC scan was completed in radiology report reviewed stating negative examination with no evidence of acute gastrointestinal bleeding during the initial 1 hour observation period. CODE STATUS: Full code DVT prophylaxis: SCDs Discussed with: Patient, patient's , and cardiology [employer] Anticipated discharge date: Clinical course to determine Anticipated discharge place: Home Patient was seen independently by Nurse Practitioner. This document was prepared using [employer] dictation software. Please allow for errors in loan counselor while rare they do occur. I reviewed the documentation as provided by the MECCA above, who is the original author of this note. I agree with the documented assessment and plan, with the following changes: none Objective - Vital Signs Vital signs: Vital Signs Temp 98.9 F 01/13/23 04:00 Pulse 89 01/13/23 04:00 Resp 20 01/13/23 04:00 BP 125/69 01/13/23 04:00 Pulse Ox 100 01/13/23 04:00 FiO2 Intake & Output 01/12/23 01/13/23 01/13/23 18:59 06:59 18:59 Intake Total 770 500 Balance 770 500 Intake: Oral 770 500 Other: # Voids 3 # Bowel Movements 3 - Labs CBC & Chem 7: 01/14/23 10:17 01/14/23 10:17 Labs: Abnormal Lab Results - Last 24 Hours (Table) 01/12/23 01/12/23 Range/Units 07:07 20:51 RBC 3.65 L 3.60 L (4.30-5.90) m/uL Hgb 10.0 L 9.7 L (13.0-17.5) gm/dL Hct 32.2 L 31.6 L (39.0-53.0) % MCHC 30.6 L (31.0-37.0) g/dL
[2023-01-13] MEDS: ATORVASTATIN 10 MG TAB PO SCH (21:06)
[2023-01-13] MEDS: DONEPEZIL 10 MG TAB PO SCH (21:07)
[2023-01-13] MEDS: MONTELUKAST 10 MG TAB PO SCH (21:07)
[2023-01-14] MEDS: SODIUM CHLORIDE 0.9% 1,000 ML IV SCH (05:19)
[2023-01-14] MEDS: SYMBICORT 160-4.5 MCG INHALER INHALATION SCH (08:40)
[2023-01-14] MEDS: busPIRone HCl 5 MG TAB PO SCH (08:43)
[2023-01-14] MEDS: PANTOPRAZOLE 40 MG/10 ML VIAL IV SCH (08:43)
[2023-01-14] MEDS: DESVENLAFAXINE SUCCINATE 50 MG TAB.ER.24H PO SCH (08:44)
[2023-01-14] MEDS: lisinopriL 20 MG TAB PO SCH (08:44)
[2023-01-14] MEDS: MEMANTINE 10 MG TAB PO SCH (08:44)
[2023-01-14] MEDS: VIT A,C & E-LUTEIN-MINERALS 1 EACH TAB PO SCH (08:44)
[2023-01-14 08:52] VITALS: BP 150/77; PULSE 63; RESP 16; TEMP 97.8
[2023-01-14 10:51] LABS: HCT 34.6 % (39.0-53.0); HGB 10.9 gm/dL (13.0-17.5); Hypochromasia Moderate; MCH 27.2 pg (25.0-35.0); MCHC 31.5 g/dL (31.0-37.0); MCV 86.4 fL (80.0-100.0); Mean Platelet Volume 7.6; Platelet Count 325 k/uL (150-450); RBC 4.01 m/uL (4.30-5.90); RDW 14.9 % (11.5-15.5); WBC 7.1 k/uL (3.8-10.6)
--- NOTE | 2023-01-14 11:10 | P.PN ---
Progress Note - Text Progress Note Date: 01/14/23 The patient's stay well. He shows no signs of active GI bleed. On exam vital signs are stable. Abdomen soft. Probable diverticular bleed. Patient was discharged home. Upon myself in 1 week.
[2023-01-14 11:12] LABS: ALT 26 U/L (4-49); AST 26 U/L (17-59); African American GFR (CKD) >90 (>60 ml/min/1.73 sqM); Albumin 3.8 g/dL (3.5-5.0); Alkaline Phosphatase 56 U/L (38-126); Anion Gap 10 mmol/L; Blood Urea Nitrogen 11 mg/dL (9-20); Calcium 9.1 mg/dL (8.4-10.2); Carbon Dioxide 25 mmol/L (22-30); Chloride 103 mmol/L (98-107); Glucose 146 mg/dL (74-99); Non-African American GFR(CKD) 85 (>60 ml/min/1.73 sqM); Potassium 4.2 mmol/L (3.5-5.1); Sodium 138 mmol/L (137-145); Total Bilirubin 0.3 mg/dL (0.2-1.3); Total Protein 6.7 g/dL (6.3-8.2)
--- NOTE | 2023-01-14 13:35 | P.DS ---
Providers Date of admission: 01/11/23 14:56 Expected date of discharge: 01/14/23 Attending physician: Kirby Caballero MD Consults: 01/11/23 14:56 Consult Physician Urgent Consulting Provider: Lukasz Greer Consult Reason/Comments: lower gi hemorrhage Do you want consulting provider notified?: Already Contacted Primary care physician: Stated None Hospital Course: Discharge Diagnosis: Acute lower GI bleed. Resolved. Hemoglobin stable. Patient underwent evaluation by general surgeon and was taken for colonoscopy. Colonoscopy report reviewed stating extensive diverticular changes with no evidence of GI bleeding on colonoscopy. On day of arrival hemoglobin was 10.5 and decreased down to 9.4 and today hemoglobin is 10.9. Patient stable for discharge recommend outpatient follow-up with rn physician office. Acute blood loss anemia secondary to GI bleed. Dizziness/lightheadedness likely secondary to acute lower GI bleed. Resolved. Abnormal EKG, EKG revealing sinus mechanism with frequent PACs and PVCs. Patient discharged home with event monitor in place and to follow up outpatient with transportation analyst in 1 week. Hypomagnesemia, resolved Hypertension. Patient to continue daily medication regimen with lisinopril 20 mg twice daily. Hyperlipidemia. Patient to continue daily cardiac medication regimen with simvastatin 20 mg nightly. Alzheimer's dementia, Continue Aricept 10 mg nightly, Namenda 10 mg twice daily, and Pristiq 100 mg daily Obstructive sleep apnea, Continue use of home CPAP. Mild persistent Asthma, stable on medications. Continue daily medication regimen with Symbicort 2 puffs twice daily and Singulair 10 mg nightly. Hospital Course: Patient is a very pleasant 77-year-old male with a past medical history of hypertension, hyperlipidemia, obstructive sleep apnea CPAP dependent nightly, asthma, and early onset Alzheimer's dementia. Patient and his are from [place] and vacationing in [place] at this time. He presented to the emergency department today secondary to recurrent episodes of dizziness/lightheadedness. Patient reports awakening this morning feeling fatigued and lightheadedness and reports she called EMS and this is when they he was having bright red blood per rectum. Patient reports since initially noting that she has had multiple episodes of bright red blood per rectum and believes he may have had some with initial bowel movement this morning. Since arrival to the emergency department patient reports an additional 4 episodes of large amounts of bright red blood per rectum with continued dizziness/lightheadedness and mild lower abdominal cramping. Patient denies having any headache, changes in vision or hearing, tinnitus, chest pain or palpitations, shortness of breath, or experiencing any numbness/tingling/weakness in his extremities. He and at bedside denies any previous episodes of rectal bleeding and deny taking any blood thinners or NSAIDs. Patient's at bedside reports last colonoscopy being approximately 5 years ago or so and was reported to be negative for any abnormalities. Upon arrival to the emergency department patient underwent full evaluation. Vital signs reviewed and stable with blood pressure 117/73, heart rate 86, respiratory rate 18, temp 97.6F, and SpO2 of 98% on room air. Labs completed and reviewed. CBC showing mild leukocytosis with WBC count of 11.8 and normocytic anemia with hemoglobin of 10.5 with no previous labs available for comparison. EMP r evealing elevated BUN 22, glucose of 123, and hypomagnesemia with magnesium of 1.5. Liver profile unremarkable and troponin negative at less than 0.012. Occult stool positive for blood. EKG completed revealing sinus mechanism with frequent PACs and PVCs with no significant T-wave or ST abnormalities upon personal review and interpretation. CTA abdomen and pelvis was completed in radiology report reviewed stating negative for aortic aneurysm or dissection revealing patent branch vessels, sigmoid diverticulosis without evidence of acute diverticulitis. GI service not available to facility at this time, and ER physician discussed case with general surgeon who has accepted patient for evaluation of GI bleeding. Case discussed with ED physician and patient was admitted under our services to general medical unit with telemetry. Cardiology and general surgery consulted. Tagged RBC scan was completed in radiology report reviewed stating negative examination with no evidence of acute gastrointestinal bleeding during the initial 1 hour observation period. Patient underwent evaluation by general surgeon and was taken for colonoscopy. Colonoscopy report reviewed stating extensive diverticular changes with no evidence of GI bleeding on colonoscopy. On day of arrival hemoglobin was 10.5 and decreased down to 9.4 and today hemoglobin is 10.9. Patient stable for discharge at this time, he is free from any complaints or concerns. Reports last episode of blood per rectum being on the evening before colonoscopy on 01/12/23. Discussed discharge instructions with patient and his at bedside. Patient recommend outpatient follow-up with rn physician office and PCP. Physical exam: Vital signs reviewed and stable. General: Nontoxic, no distress and appears stated age. Derm: Skin warm and dry, normal coloration for ethnicity. Head: Atraumatic, normocephalic and symmetric. Eyes: EOMs intact, no lid lag, and anicteric sclera Mouth: no lip lesions, mucus membranes moist Cardiovascular: regular rate and irregular rhythm with normal S1S2, no murmur, positive posterior tibial pulses bilaterally, and cap refill < 2 seconds. Lungs: Respirations even, regular, and unlabored on room air. Lungs CTA bilaterally, no rhonchi, no rales, no wheezing, and no accessory muscle usage. Abdominal: soft, nontender to palpation, no guarding, no appreciable organomegaly Ext: ROM intact. No gross muscle atrophy, no edema, no contractures Neuro: Speech clear, face symmetrical and CN II-XII grossly intact with no noted focal neuro deficits Psych: Alert and oriented to person, place, time, and situation. Appropriate and pleasant affect. A total of 35 minutes of time were spent preparing this complex discharge summary. Pt was discharged on 01/14/23 at 8:49 AM. Patient was seen independently by Nurse Practitioner. This document was prepared using [employer] dictation software. Please allow for errors in law office assistant while rare they do occur. Govind Lan NP rendered care for this patient independently, reviewed the findings and plan as documented in the note above. I did not physically speak with or examine the patient on this date. Patient Condition at Discharge: Stable Plan - Discharge Summary New Discharge Prescriptions: Continue busPIRone HCL 15 mg PO BID Simvastatin [Zocor] 20 mg PO HS Fluticasone Propion/Salmeterol [Advair 500-50 Diskus] 1 puff INHALATION RT- BID Desvenlafaxine [Pristiq ER] 100 mg PO DAILY Memantine [Namenda] 10 mg PO BID Fluticasone Nasal Friant [Flonase Nasal Friant] 1 spray EA NOSTRIL DAILY PRN PRN Reason: Allergy Symptoms Donepezil [Aricept] 10 mg PO HS lisinopriL [Prinivil] 20 mg PO BID Cholecalciferol [Vitamin D3 (25 Mcg = 1000 Iu)] 25 mcg PO DAILY Alive Mens 50+ Multivitamin 1 tab PO DAILY Vit C/E/Zn/Coppr/Lutein/Zeaxan [Preservision Areds 2 Softgel] 1 cap PO BID Montelukast Sodium 10 mg PO HS Discharge Medication List Alive Mens 50+ Multivitamin 1 tab PO DAILY 01/11/23 [History] Cholecalciferol [Vitamin D3 (25 Mcg = 1000 Iu)] 25 mcg PO DAILY 01/11/23 [History] Desvenlafaxine [Pristiq ER] 100 mg PO DAILY 01/11/23 [History] Donepezil [Aricept] 10 mg PO HS 01/11/23 [History] Fluticasone Nasal Friant [Flonase Nasal Friant] 1 spray EA NOSTRIL DAILY PRN 01/11/23 [History] Fluticasone Propion/Salmeterol [Advair 500-50 Diskus] 1 puff INHALATION RT-BID 01/11/23 [History] Memantine [Namenda] 10 mg PO BID 01/11/23 [History] Montelukast Sodium 10 mg PO HS 01/11/23 [History] Simvastatin [Zocor] 20 mg PO HS 01/11/23 [History] Vit C/E/Zn/Coppr/Lutein/Zeaxan [Preservision Areds 2 Softgel] 1 cap PO BID 01/11/23 [History] busPIRone HCL 15 mg PO BID 01/11/23 [History] lisinopriL [Prinivil] 20 mg PO BID 01/11/23 [History] Follow up Appointment(s)/Referral(s): Nnamdi Delacruz MD [STAFF PHYSICIAN] - 2 Weeks (office will call with an appointment) Kenneth Stone MD [STAFF PHYSICIAN] - 1 Week ([facility] primary care doctor) Esha Barnett MD [STAFF PHYSICIAN] - 1 Week ([facility] rn physician office) None,Stated [Primary Care Provider] - 1-2 days Lukasz Greer MD [STAFF PHYSICIAN] - 1 Week Patient Instructions/Handouts: Diverticulosis (DC), Diverticulosis Diet (GEN) Activity/Diet/Wound Care/Special Instructions: Activity: As tolerated. Take breaks as needed. Diet: Diverticulosis diet. Please see attached examples. Special Instructions: Take all of your medications as directed and remember to keep all of your doctor's appointments and follow-up as needed. Thank you for allowing us to participate in your care, it was truly a pleasure having you for our patient!!! Discharge Disposition: HOME SELF-CARE
== END 2023-01-14 12:10 | disposition home or self-care (01) | DRG 378 ==
LOC: EC 11:35 → 3SCARD 14:56
PROVIDERS: ADMIT Student in an Organized Health Care Education/Training Program; ATTEND Student in an Organized Health Care Education/Training Program
PROC: 0DJD8ZZ Inspection of Lower Intestinal Tract, Via Natural or Artificial Opening Endoscopic (ICD-10-PCS; principal; 2023-01-13 10:50)
DX: K57.33 Diverticulitis of large intestine without perforation or abscess with bleeding (principal); D62 Acute posthemorrhagic anemia; J45.30 Mild persistent asthma, uncomplicated; I10 Essential (primary) hypertension; G30.0 Alzheimer's disease with early onset; G47.33 Obstructive sleep apnea (adult) (pediatric); F02.80 Dementia in other diseases classified elsewhere, unspecified severity, without behavioral disturbance, psychotic disturbance, mood disturbance, and anxiety; E83.42 Hypomagnesemia; I48.91 Unspecified atrial fibrillation; E78.5 Hyperlipidemia, unspecified; Z79.51 Long term (current) use of inhaled steroids; Z79.899 Other long term (current) drug therapy; Z80.0 Family history of malignant neoplasm of digestive organs; Z86.73 Personal history of transient ischemic attack (TIA), and cerebral infarction without residual deficits; Z87.891 Personal history of nicotine dependence
CPT/HCPCS: 36415; 45378; 74174; 78278; 80048; 80053; 82272; 83735; 84443; 84484; 85025; 85027; 85610; 85730; 86850; 86900; 86901; 93005; 93270; 93306; 94640; 96365; 96375; 99285